=== PATIENT | female | born 1990 | race Caucasian/White ===

== ENCOUNTER 2025-03-10 15:02 | Emergency (ER) | payer MEDICAID ==
[2025-03-10] MEDS: Ondansetron 4 MG Tab.DIS PO ONE (16:25)
[2025-03-10] MEDS: Dexamethasone 4 MG/ML SDV IVPUSH ONE (18:19)
[2025-03-10] MEDS: Ondansetron 4 MG/2 ML SDV IVPUSH ONE (18:32)
[2025-03-10] MEDS: Ondansetron 4 MG/2 ML SDV ONE (18:39)
== END 2025-03-10 20:14 ==
LOC: LB.ED 15:02
DX: G93.9 Disorder of brain, unspecified (principal); F17.200 Nicotine dependence, unspecified, uncomplicated; Z79.899 Other long term (current) drug therapy
CPT/HCPCS: 96361; 96365; 96372; 96375; 99285; 99285-25; A0425; A0428; J1100; J1171; J1953; J2405; J2470; J7030; Q0162